=== PATIENT | male | born 1990 | race African-American/Black ===

== ENCOUNTER 2017-07-01 02:35 | Emergency (ER) | payer MEDICAID, OTHER ==
[~2017-07-01] VITALS: Ht 167.6 cm; Wt 105.3 kg
[2017-07-01] MEDS ORDERED: KETOROLAC 60MG/2ML VIAL IM ONE (06:45)
[2017-07-01 08:14] VITALS: BP 124/61
== END 2017-07-01 08:16 | disposition home or self-care (01) ==
LOC: ER 02:35
DX: S63.502A Unspecified sprain of left wrist, initial encounter (principal); V43.52XA Car driver injured in collision with other type car in traffic accident, initial encounter; Y93.84 Activity, sleeping; Y92.410 Unspecified street and highway as the place of occurrence of the external cause; M41.9 Scoliosis, unspecified; J45.909 Unspecified asthma, uncomplicated
CPT/HCPCS: 73110; 73130; 99284; J1885